=== PATIENT | female | born 1960 | race Caucasian/White ===

== ENCOUNTER → 2017-12-13 11:24 | Outpatient (CLI) | payer OTHER, SELFPAY ==
--- NOTE | 2017-12-13 | DI.MG.S_ITS ---
BILATERAL DIGITAL SCREENING MAMMOGRAM 3D/2D WITH CAD: 12/13/2017 Comparison is made to exams dated: 01/16/2013 mammogram - [facility] and 06/19/1999 mammogram - [facility]. The tissue of both breasts is extremely dense, which lowers the sensitivity of mammography. Current study was also evaluated with a Computer Aided Detection (CAD) system. No significant masses, calcifications, or other findings are seen in either breast. There has been no significant interval change. IMPRESSION: NEGATIVE There is no mammographic evidence of malignancy. A 1 year screening mammogram is recommended. This exam was interpreted at Station ID: [id number]. NOTE: For mammograms, a report in lay terms will be sent to the patient. Approximately 15% of breast malignancies will not be visualized mammographically. In the management of a palpable breast mass, a negative mammogram must not discourage biopsy of a clinically suspicious lesion. Electronically Signed By: Reza pelletier/fiona:12/13/2017 12:24:43 letter sent: Normal Exam ACR BI-RADS Category 1: Negative 3341F
== END ==
PROVIDERS: Family Provider Family Medicine; PCP Family Medicine; Visit Provider Family Medicine
DX: Z12.31 Encounter for screening mammogram for malignant neoplasm of breast (principal)
CPT/HCPCS: 77063; 77067

== ENCOUNTER → 2018-02-19 12:53 | Outpatient (CLI) | payer OTHER, SELFPAY ==
--- NOTE | 2018-02-19 | DI.RAD.S_ITS ---
PROCEDURE: XR KNEE RT 3V INDICATIONS: RIGHT KNEE PAIN FOR ONE MONTH NO INJURY TECHNIQUE: 3 views of the knee were acquired. COMPARISON: [facility], , KNEE 3V LEFT, 01/17/2013, 10:38. FINDINGS: Bones: No fractures or dislocations. No suspicious bony lesions. Moderate to severe patellofemoral and knee joint narrowing laterally and there is tricompartmental periarticular osteophyte formation. Soft tissues: Small joint effusion. No suspicious soft tissue calcifications. IMPRESSION: Small joint effusion and moderate to severe patellofemoral knee joint narrowing laterally. Dictated by: Toby Devlin [facility] Interpreted: Robert Bowen MD on 02/19/2018 at 13:41 Approved by: Robert Bowen M.D. on 02/19/2018 at 14:35
== END ==
PROVIDERS: Family Provider Family Medicine; PCP Family Medicine; Visit Provider Family Medicine
DX: M25.561 Pain in right knee (principal); M25.461 Effusion, right knee
CPT/HCPCS: 73562

== ENCOUNTER → 2020-03-11 12:17 | Outpatient (CLI) | payer OTHER, SELFPAY ==
--- NOTE | 2020-03-11 | DI.RAD.S_ITS ---
PROCEDURE: XR RIBS RT 2V INDICATIONS: rt sided rib pain TECHNIQUE: 2 views of the right ribs were acquired. COMPARISON: [facility], , CHEST 2 VIEW, 08/01/2017, 16:59. FINDINGS: Surgical changes and devices: None. Bones and chest wall: No fractures or dislocations. No suspicious bony lesions. Overlying soft tissues appear unremarkable. Lungs and pleura: The visualized lung appears clear. No pleural effusions or pneumothorax are visible. IMPRESSION: No displaced right rib fractures or other bony abnormalities. Dictated by: Toby Devlin [facility] Interpreted: Robert Bowen MD on 03/11/2020 at 13:00 Approved by: Robert Bowen M.D. on 03/11/2020 at 15:48
== END ==
PROVIDERS: Family Provider Family Medicine; PCP Family Medicine; Referring Provider Family Medicine; Visit Provider Family Medicine
DX: R07.81 Pleurodynia (principal)
CPT/HCPCS: 71100

== ENCOUNTER → 2020-08-11 12:33 | Outpatient (CLI) | payer OTHER, SELFPAY | PROVIDERS: Family Provider Family Medicine; PCP Family Medicine; Referring Provider Family Medicine; Visit Provider Family Medicine | DX: M85.88 Other specified disorders of bone density and structure, other site (principal); Z78.0 Asymptomatic menopausal state; E07.9 Disorder of thyroid, unspecified | CPT/HCPCS: 77080 ==

== ENCOUNTER → 2021-04-24 13:22 | Outpatient (CLI) | payer OTHER, SELFPAY ==
--- NOTE | 2021-04-24 | DI.MG.S_ITS ---
BILATERAL DIGITAL SCREENING MAMMOGRAM 3D/2D WITH CAD: 04/24/2021 CLINICAL: Routine screening. Comparison is made to exams dated: 12/13/2017 mammogram and 01/16/2013 mammogram - [facility]. The tissue of both breasts is extremely dense, which lowers the sensitivity of mammography. Current study was also evaluated with a Computer Aided Detection (CAD) system. No significant masses, calcifications, or other findings are seen in either breast. There has been no significant interval change. IMPRESSION: NEGATIVE There is no mammographic evidence of malignancy. A 1 year screening mammogram is recommended. This exam was interpreted at Station ID: [id number]. NOTE: For mammograms, a report in lay terms will be sent to the patient. Approximately 15% of breast malignancies will not be visualized mammographically. In the management of a palpable breast mass, a negative mammogram must not discourage biopsy of a clinically suspicious lesion. Electronically Signed By: Bib bhatia/fiona:04/24/2021 14:59:58 letter sent: Normal Exam ACR BI-RADS Category 1: Negative 3341F
== END ==
PROVIDERS: Family Provider Family Medicine; PCP Family Medicine; Referring Provider Family Medicine; Visit Provider Family Medicine
DX: Z12.31 Encounter for screening mammogram for malignant neoplasm of breast (principal)
CPT/HCPCS: 77063; 77067

== ENCOUNTER 2021-05-04 12:35 | Emergency (ER) | payer OTHER, SELFPAY ==
[2021-05-04 12:45] VITALS: BP 161/82; PULSE 76; RESP 14; TEMP 36.2; O2SAT 97; BMI 28.7
--- NOTE | 2021-05-04 12:50 | DI.RAD.S_ITS ---
PROCEDURE: XR KNEE RT 3V INDICATIONS: knee pain after leg bent under her TECHNIQUE: 3 views of the knee were acquired. COMPARISON: [facility], CR, XR KNEE RT 3V, 02/19/2018, 12:45. FINDINGS: Bones: No fractures or dislocations. No suspicious bony lesions. Tricompartment degenerative change including severe patellofemoral joint space loss. Soft tissues: No joint effusion. No suspicious soft tissue calcifications. IMPRESSION: Degenerative arthritis. No evidence acute bony abnormality of the right knee. If clinical suspicion and/or symptoms persist, further assessment with repeat plain films, or advanced imaging (e.g., CT, MRI, or bone scan) may be helpful for further assessment. Dictated by: Toño Hughes M.D. on 05/04/2021 at 13:26 Approved by: Toño Hughes M.D. on 05/04/2021 at 13:26
--- NOTE | 2021-05-04 15:27 | ED.LOWEXIN ---
HPI - Extremity Injury (Lower) <Jonathan Beck PA-C - Last Filed: 05/04/21 16:18> General Chief Complaint: Extremity Injury, Lower Stated Complaint: slide down staircase,rt knee/leg Time Seen by Provider: 05/04/21 15:13 Source: patient Mode of arrival: Ambulatory Limitations: no limitations History of Present Illness HPI Narrative: Patient is a 60-year-old female that presents to the emergency department today for an evaluation a right leg injury. Patient states that she slipped down a spiral staircase at approximately 10:00 a.m. this morning, injuring her right knee. She states that when she finally landed her right knee bent behind her resulting in immediate pain. Of note, patient states that she was able to bear weight after the fall. She denies experiencing dizziness or lightheadedness prior to falling and she denies hitting her head as a result of the fall. Patient denies changes in vision, headache, dizziness, decreased sensation in the bilateral lower extremities, lower extremity weakness. No other concerns voiced at this time. Related Data Home Medications Medication Instructions Recorded Confirmed fexofenadine 180 mg tablet 180 mg PO PRN #0 08/29/12 Previous Rx's Medication Instructions Recorded ibuprofen 800 mg tablet 800 mg PO Q8H #42 08/29/12 LEVOTHYROXINE SODIUM (SYNTHROID) 0.05 mg PO QDAY #90 09/29/12 THYROID (#ARMOUR THYROID) 30 mg PO Q DAY #30 12/22/12 Allergies Allergy/AdvReac Type Severity Reaction Status Date / Time Penicillins Allergy Verified 05/04/21 12:47 Review of Systems <Jonathan Beck PA-C - Last Filed: 05/04/21 16:18> Constitutional Constitutional: Denies chills, Denies fever(s), Denies frequent falls, Denies lethargy and Denies weakness ENT Ears, Nose, Mouth, and Throat: Denies dizziness Cardiovascular Cardiovascular: Denies chest pain, Denies irregular heart rhythm, Denies lightheadedness, Denies palpitations, Denies dyspnea, Denies dyspnea on exertion and Denies orthopnea Respiratory Respiratory: Denies cough, Denies dyspnea, Denies dyspnea on exertion and Denies wheezing Gastrointestinal Gastrointestinal: Denies abdominal pain, Denies change in bowel habits, Denies diarrhea, Denies nausea and Denies vomiting Musculoskeletal Musculoskeletal: Denies deformity, Reports arthralgias (Right knee), Denies numbness, Denies radiating pain into limb and Reports other (Tenderness to palpation appreciated over medial and lateral right knee) Neurologic Neurologic: Denies behavioral changes, Denies confusion, Denies dizziness, Denies frequent falls, Denies numbness and Denies weakness Psychiatric Psychiatric: Denies behavioral changes and Denies confusion Endocrine Endocrine: Denies palpitations Allergic/Immunologic Allergic/Immunologic: Denies wheezing Patient History <Jonathan Beck PA-C - Last Filed: 05/04/21 16:18> Social History Smoking Status: Unknown if ever smoked Smoking Status: Unknown if ever smoked alcohol intake frequency: 0-2 drinks per day Substance Use Type: does not use Exam <Jonathan Beck PA-C - Last Filed: 05/04/21 16:18> Narrative Exam Narrative: GENERAL: 60 year old patient appears stated age. Well-developed patient, in mild distress. HEAD: Atraumatic. Normocephalic. EYES: Pupils equal round and reactive. Extraocular motions intact. No scleral icterus. No injection or drainage. ENT: Nose without bleeding, purulent drainage. Throat without erythema, tonsillar hypertrophy or exudate. Airway patent. NECK: Trachea midline. Non tender CARDIOVASCULAR: Regular rate and rhythm without murmurs, gallops, or rubs. RESPIRATORY: Clear to auscultation. Breath sounds equal bilaterally. No wheezes, rales, or rhonchi. GASTROINTESTINAL: Abdomen soft, non-tender, nondistended. EXTREMITIES: No edema. Mild generalized swelling about the right knee. Tenderness to palpation appreciated over the medial and lateral aspects of the right knee. No significant joint laxity appreciated throughout the right lower extremity. Hips are nontender to palpation bilaterally. Ankles nontender palpation bilaterally. BACK: Nontender without deformity or crepitance. No flank tenderness. NEURO: AOx3. SKIN: No rash or erythema of visible areas Initial Vital Signs Initial Vital Signs: Vital Signs Temperature 97.2 F L 05/04/21 12:45 Pulse Rate 76 05/04/21 12:45 Respiratory Rate 14 05/04/21 12:45 Blood Pressure 161/82 H 05/04/21 12:45 Pulse Oximetry 97 05/04/21 12:45 Cardio Pulses: dorsalis pedis present bilaterally <Queta Campos DO - Last Filed: 05/04/21 20:16> Initial Vital Signs Initial Vital Signs: Vital Signs Temperature 97.2 F L 05/04/21 12:45 Pulse Rate 76 05/04/21 12:45 Respiratory Rate 14 05/04/21 12:45 Blood Pressure 161/82 H 05/04/21 12:45 Pulse Oximetry 97 05/04/21 12:45 Course <Jonathan Beck PA-C - Last Filed: 05/04/21 16:18> Course Course Narrative: Patient is a 60-year-old female that presents to the emergency department today for an evaluation a right leg injury. X-ray of right knee obtained. Patient does not complain of additional joint pain. Orders Ordered: ED Orders 05/04/21 12:50 XR knee RT 3V Stat Vital Signs Vital signs: Vital Signs - 8 hr 05/04/21 12:45 05/04/21 15:54 Temperature 97.2 F L Pulse Rate 76 72 Respiratory Rate 14 16 Blood Pressure 161/82 H 139/74 Pulse Oximetry 97 98 <Queta Campos DO - Last Filed: 05/04/21 20:16> Orders Ordered: ED Orders 05/04/21 12:50 XR knee RT 3V Stat Vital Signs Vital signs: Vital Signs - 8 hr 05/04/21 12:45 05/04/21 15:54 Temperature 97.2 F L Pulse Rate 76 72 Respiratory Rate 14 16 Blood Pressure 161/82 H 139/74 Pulse Oximetry 97 98 MDM - Extremity Injury (Lower) <Jonathan Beck PA-C - Last Filed: 05/04/21 16:18> Imaging Data Extremity x-ray #1: Radiologist's Impression: PROCEDURE:? XR KNEE RT 3V ? INDICATIONS:? knee pain after leg bent under her ? TECHNIQUE:? 3 views of the knee were acquired.? ? COMPARISON:? [facility], , XR KNEE RT 3V, 02/19/2018, 12:45. ? FINDINGS:? ? Bones:? No fractures or dislocations.? No suspicious bony lesions.? Tricompartment degenerative change including severe patellofemoral joint space loss.? ? Soft tissues:? No joint effusion.? No suspicious soft tissue calcifications.? ? ? IMPRESSION:? Degenerative arthritis.? No evidence acute bony abnormality of the right knee. ? If clinical suspicion and/or symptoms persist, further assessment with repeat plain films, or advanced imaging (e.g., CT, MRI, or bone scan) may be helpful for further assessment. ? ? ? Dictated by: Toño Hughes M.D. on 05/04/2021 at 13:26 ? ? Approved by: Toño Hughes M.D. on 05/04/2021 at 13:26 ? MDM Narrative Medical decision making narrative: Patient is a 60-year-old female that presents to the emergency department today for an evaluation a right leg injury. To consider fracture versus dislocation versus sprain versus strain. X-ray results are reassuring as no fracture is appreciated. Physical examination is not consistent with significant ligamentous injury and is reassuring as the patient is neurovascularly intact throughout the bilateral lower extremities. Discussed with patient the need to follow-up with her primary care provider and a possibility of following up with Orthopedics. Strict return precautions were discussed with the patient prior to discharge. Discharge Plan Departure Patient Disposition: Home Clinical Impression: Knee sprain Qualifiers: Encounter type: initial encounter Involved ligament of knee: unspecified ligament Laterality: right Qualified Code(s): S83.91XA - Sprain of unspecified site of right knee, initial encounter Instructions: DI for Knee Sprain Activity Restrictions/Additional Instructions: *You have been diagnosed with right knee sprain *What to do: *Please continue to take your regular medications as directed. [ ] New medication prescriptions sent to your pharmacy: [ ] [ ] New medication written as a paper prescription [X] No new medications given *Please follow up with your primary care provider in 2-3 days, call for an appointment. Let them know you were seen in the Emergency Department and that we ask that you be seen in follow up. We will electronically transmit a record of today's note if your PCP is in our system. *If you do not have a primary care provider please contact the [facility] Resource line at [phone]. They will ask some questions about your medical history and help get you set up with a doctor in the community. *Return to Emergency Department if you should have any new, worsening or concerning symptoms, such as fever greater than 101 F, shaking chills, worsening knee pain, worsening knee instability, significant joint swelling, persistent vomiting or other bothersome symptoms. Prescriptions: No Action fexofenadine 180 MG tablet 180 mg PO PRN Qty: 0 RF: 0 ibuprofen 800 MG tablet 800 mg PO Q8H Qty: 42 RF: 0 LEVOTHYROXINE SODIUM (SYNTHROID) 0.05 mg PO QDAY Qty: 90 RF: 0 THYROID (#ARMOUR THYROID) 30 mg PO Q DAY Qty: 30 RF: 2 Referrals: Jenny Wilder MD [Primary Care Provider] - <Queta Campos DO - Last Filed: 05/04/21 20:16> Cosign ED Attending Cossurehsature Attestation: I was immediately available in the department for consultation. Documentation has been reviewed.
[2021-05-04 15:54] VITALS: BP 139/74; PULSE 72; RESP 16; O2SAT 98
== END 2021-05-04 15:54 | disposition home or self-care (01) ==
PROVIDERS: Emergency Provider Physician Assistant; Family Provider Family Medicine; PCP Family Medicine
DX: S83.91XA Sprain of unspecified site of right knee, initial encounter (principal); W10.9XXA Fall (on) (from) unspecified stairs and steps, initial encounter
CPT/HCPCS: 73562; 99281; 99283

== ENCOUNTER 2021-09-29 06:48 | Emergency (ER) | payer OTHER, SELFPAY ==
[2021-09-29] VITALS (11 sets, daily range): BP systolic 124–186; BP diastolic 79–96; PULSE 62–71; RESP 11–20; TEMP 36.5; O2SAT 92–99; BMI 29.2
--- NOTE | 2021-09-29 06:55 | DI.CT.S_ITS ---
PROCEDURE: CT HEAD/BRAIN WO CON INDICATIONS: left side weakness, last known well 11pm TECHNIQUE: Noncontrast 4.5 mm thick angled axial sections acquired from the foramen magnum to the vertex, with coronal and sagittal reformats. For radiation dose reduction, the following was used: automated exposure control, adjustment of mA and/or kV according to patient size. COMPARISON: [facility], CT, HEAD WITHOUT CONTRAST, 10/13/2016, 20:11. FINDINGS: Image quality: Excellent. CSF spaces: Basal cisterns are patent. No extra-axial fluid collections. Ventricles are normal in size and shape. Brain: No midline shift. No intracranial masses or hemorrhage. Guan-white matter interface is normal. Stable senescent bilateral basal ganglial calcifications. Skull and face: Calvarium and visualized facial bones are intact, without suspicious lesions. Sinuses: Visualized sinuses and mastoids are clear. IMPRESSION: 1. CT head without acute intracranial abnormalities. 2. No acute intracranial hemorrhage. 3. No acute calvarial fractures. Findings were discussed telephonically with Dr. Hernández at 0748hrs [facility]. Dictated by: Aj Bray M.D. on 09/29/2021 at 7:46 Approved by: Aj Bray M.D. on 09/29/2021 at 7:49
[2021-09-29 07:09] LABS: Add Manual Diff / Slide Review NO; Basophils Absolute Auto 0 /uL (0-100); Basophils Percent Auto 0.7 % (0-2); Eosinophils Absolute Auto 200 /uL (0-450); Eosinophils Percent Auto 3.2 % (2-4); Hematocrit 41.6 % (36-46); Hemoglobin 14.2 g/dL (12.0-16.0); Lymphocytes Absolute Auto 1300 /uL (1100-4500); Lymphocytes Percent Auto 26.5 % (25-40); Mean Corpuscular HGB Conc 34.1 % (30-36); Mean Corpuscular Hemoglobin 31.3 PG (26-34); Mean Corpuscular Volume 91.8 fL (80-100); Monocytes Absolute Auto 300 /uL (0-900); Neutrophils Absolute Auto 3000 /uL (1500-7000); Neutrophils Percent Auto 62.6 % (50-75); Platelet Count 242 X10^3/uL (150-400); Red Blood Cell Count 4.53 X10^6/uL (4.0-5.2); Red Cell Distribution Width 12.8 % (11.6-14.8); White Blood Cell Count 4.8 X10^3/uL (4.5-11.0)
[2021-09-29 07:19] LABS: Alanine Aminotransferase 23 IU/L (<35); Albumin 4.8 g/dL (3.5-5.0); Albumin Globulin Ratio 1.4 (1.0-2.8); Alkaline Phosphatase 86 U/L (38-126); Aspartate Aminotransferase 32 IU/L (14-36); BUN Creatinine Ratio 26.3 (6-22); Bilirubin Total 1.3 mg/dL (0.2-1.3); Blood Urea Nitrogen 25 mg/dL (7-17); Calcium 9.8 mg/dL (8.4-10.2); Carbon Dioxide 25 mmol/L (22-32); Chloride 106 mmol/L (98-107); Estimated Glomerular Filt Rate 59.4 mL/min (>60); Globulin 3.4 g/dL (1.7-4.1); Glucose 102 mg/dL (80-110); HEMOLYSIS 15 (0-50); Potassium 3.8 mmol/L (3.4-5.1); Sodium 139 mmol/L (137-145); Total Protein 8.2 g/dL (6.3-8.2)
[2021-09-29 07:30] LABS: Troponin I < 0.012 ng/mL (0.01-0.034)
[2021-09-29 07:36] LABS: COVID19 -Nasal RAPID Negative (Negative)
--- NOTE | 2021-09-29 07:46 | DI.CT.S_ITS ---
PROCEDURE: CT ANGIO HEAD AND NECK INDICATIONS: Left side weakness, TECHNIQUE: After the administration of intravenous contrast, 1 mm thick sections acquired from the aortic arch through the [place]. Post-contrast 4.5 mm thick sections then re-acquired from the foramen magnum to the vertex. 3-dimensional kysohdy-uqrirzegw-nmkjlcfxoi (MIP) and/or volume rendering reformats were acquired of the central intracranial vasculature and neck separately. COMPARISON: MR, STROKE PROTOCOL, 10/25/2016, 13:18. [facility], CT, HEAD WITHOUT CONTRAST, 10/13/2016, 20:11. [facility], CT, CT HEAD/BRAIN WO CON, 09/29/2021, 7:32. FINDINGS: Image quality: Prominent venous overlap opacification is present. BRAIN: CSF spaces: Ventricles are normal in size and shape. Basal cisterns are patent. No extra-axial fluid collections. Brain: No midline shift. No intracranial bleeds or masses. Guan-white matter interface appears intact. Senescent basal ganglia calcifications are present. Skull and face: Calvarium and facial bones appear intact, without suspicious lesions. Orbits appear normal. Sinuses: Sinuses and mastoids are clear. HEAD CT ANGIOGRAPHY: Anterior circulation: Intracranial internal carotid arteries are normal in size and flow. The flow within the paired anterior cerebral arteries is normal and symmetric. The flow within the middle cerebral arteries is normal and symmetric. The anterior communicating artery is seen. No aneurysms are seen. The superior most aspects of the anterior circulation are not included within the field of view and cannot be evaluated. Posterior circulation: Visualized portions of the vertebral arteries demonstrate normal caliber, and join to form a normal appearing basilar artery. Flow within the posterior cerebral arteries is normal and symmetric. No aneurysms are seen. There is a right-sided vertebral artery dominance. NECK CT ANGIOGRAPHY: The origins of the left and right common, right internal and bilateral external carotid arteries demonstrate no areas of hemodynamically significant stenosis, vascular occlusion or aneurysmal dilation. Calcification is noted at the origins of the internal carotid arteries bilaterally. There is approximate 40-50% stenosis at the origin of the left internal carotid artery. Origins of the left and right vertebral arteries demonstrate no areas of hemodynamically significant stenosis, vascular occlusion or aneurysmal dilation. Aortic arch demonstrates conventional anatomy. Limited, visualized portions of the subclavian vasculature are unremarkable. IMPRESSION: 1. No acute intracranial process. 2. No areas of hemodynamically significant stenosis, vascular occlusion or aneurysmal dilation within the anterior circulation. It is noted angio images of the superior most aspect of the anterior circulation are not included within the field of view. This area is unable to be Banks evaluated and if concern persists, repeat images through this region is recommended. 3. No areas of hemodynamically significant stenosis, vascular occlusion or aneurysmal dilation within the posterior circulation. 4. Approximate 40-50% stenosis at the origin of the left internal carotid artery secondary to calcification. Any quantitative measurements of stenosis were performed using NASCET criteria. Dictated by: Shanell Walker M.D. on 09/29/2021 at 8:02 Approved by: Shanell Walker M.D. on 09/29/2021 at 8:13
--- NOTE | 2021-09-29 07:47 | ED.NEUROSD ---
HPI - Neuro Symptoms/Deficit General Chief Complaint: Neuro Symptoms/Deficit Stated Complaint: headache, weakness left side Time Seen by Provider: 09/29/21 06:51 Source: patient and family Mode of arrival: Ambulatory Limitations: no limitations History of Present Illness HPI Narrative: The patient complains of occipital headache for about 10 days. She has subjective left-sided numbness and weakness. She has no restriction of motion in extremities. She has no history of stroke or TIA. She has no visual changes. She has no dysarthria or confusion. She is on medications for hypothyroidism. He has no history of diabetes, hyperlipidemia or hypertension. She has a strong family history of stroke. She denies recent illness. She has no URI symptoms, no cough, no sore throat or fever. She has he has history of migraines, the current headache is nothing like her migraines. She notes a clicking sensation in her neck with movement. She denies neck pain. On Anticoagulants: No Related Data Home Medications Medication Instructions Recorded Confirmed fexofenadine 180 mg tablet 180 mg PO PRN #0 08/29/12 Previous Rx's Medication Instructions Recorded ibuprofen 800 mg tablet 800 mg PO Q8H #42 08/29/12 LEVOTHYROXINE SODIUM (SYNTHROID) 0.05 mg PO QDAY #90 09/29/12 THYROID (#ARMOUR THYROID) 30 mg PO Q DAY #30 12/22/12 Allergies Allergy/AdvReac Type Severity Reaction Status Date / Time Penicillins Allergy Verified 05/04/21 12:47 Review of Systems Constitutional Constitutional: Denies body ache(s), Denies chills, Reports fatigue, Denies fever(s) and Reports headache(s) Eyes Eyes: Denies blurry vision Comments: Vision becomes fuzzy in the inferior visual more. There is no clean visual field cut. ENT Ears, Nose, Mouth, and Throat: Reports dizziness, Reports headache(s), Denies sinus pressure and Denies sore throat Cardiovascular Cardiovascular: Denies chest pain, Denies syncope, Denies rapid heart rate, Denies pedal edema and Denies dyspnea Respiratory Respiratory: Denies cough and Denies dyspnea Gastrointestinal Gastrointestinal: Denies abdominal pain and Denies nausea Genitourinary Genitourinary: Denies dysuria and Denies urinary urgency Musculoskeletal Musculoskeletal: Denies back pain Integumentary/Breasts Skin/Breast: Denies lesions and Denies rash Neurologic Neurologic: Denies confusion, Reports dizziness, Denies syncope and Reports headache(s) Psychiatric Psychiatric: Reports anxiety and Denies confusion Endocrine Endocrine: Reports fatigue Hematologic/Lymphatic On Anticoagulants: No Patient History Medical History (Updated 09/29/21 @ 10:27 by Diomedes Hernández MD) Hypothyroidism Migraine Surgical History (Updated 09/29/21 @ 07:53 by Diomedes Hernández MD) No significant past surgical history Social History Smoking Status: Unknown if ever smoked Smoking Status: Unknown if ever smoked alcohol intake frequency: 0-2 drinks per day Substance Use Type: does not use Exam Initial Vital Signs Initial Vital Signs: Vital Signs Temperature 97.7 F 09/29/21 06:58 Pulse Rate 66 09/29/21 06:58 Respiratory Rate 20 09/29/21 06:58 Blood Pressure 186/96 H 09/29/21 06:58 Pulse Oximetry 97 09/29/21 06:58 Const General: cooperative, healthy appearing, comfortable and anxious Nutritional Appearance: average body habitus HENIL Head: normal to inspection, normocephalic and atraumatic Face and sinus: normal facial exam Mouth: oral mucosae normal Throat: posterior oropharynx normal Eyes Conjunctivae: conjunctivae normal Sclera: sclerae normal Pupils: PERRL EOM: EOM intact bilaterally Neck Neck: normal visual inspection Chest Chest: normal inspection of the chest Resp Effort & Inspection: normal respiratory effort Auscultation: clear to auscultation bilaterally Cardio Rate: regular rate Rhythm: regular rhythm Heart Sounds: S1 normal, S2 normal, no click, no murmurs and no rubs GI Inspection: normal to inspection Palpation: No mass and No tender General: No CVA tenderness Back/Spine/Pelvis Back: normal to inspection Skin General: no rashes or lesions noted Neuro General: patient alert, patient awake and patient oriented x3 Cranial Nerves: CN's II-XI intact bilaterally Cognition: normal cognition Speech: speech normal Gait: not ataxic Motor: muscle tone normal throughout Sensory Exam: other (Decreased light touch sensation to left face, left arm and left leg.) Extrem General: normal to inspection, full ROM, no pedal edema and no calf tenderness Psych Mental Status: mental status grossly normal Course Course Course Narrative: Initial blood pressure reading was significantly high, systolic pressure was 07/28/2029 range at the time of discharge without intervention. Aspirin was given. CT/CTA was negative for a neurologic or vascular event. The CTA does indicate atherosclerotic changes. Without discussion from the radiologist, in moderate amount of osteoarthritis is also present in the cervical spine. Symptoms have greatly improved with IV Toradol. Orders Ordered: Discontinued Medications Aspirin (Aspirin 81 Mg Chew Tab) 324 mg PO NOW ONE Stop: 09/29/21 08:09 Last Admin: 09/29/21 08:14 Dose: 324 mg Documented by: SPRING Ketorolac Tromethamine (Ketorolac 30 Mg/Ml Vial) 15 mg IV NOW ONE Stop: 09/29/21 08:50 Last Admin: 09/29/21 09:17 Dose: 15 mg Documented by: SPRING Vital Signs Vital signs: Vital Signs - 8 hr 09/29/21 06:58 09/29/21 07:00 09/29/21 07:30 Temperature 97.7 F Pulse Rate 70 67 63 Respiratory Rate 19 15 15 Blood Pressure 186/96 H 164/86 H 161/82 H Pulse Oximetry 98 99 99 09/29/21 07:42 09/29/21 08:00 09/29/21 08:30 Temperature Pulse Rate 70 62 69 Respiratory Rate 17 16 11 L Blood Pressure 157/86 H 155/83 H 160/88 H Pulse Oximetry 99 99 98 09/29/21 09:16 09/29/21 09:17 Temperature Pulse Rate 64 Respiratory Rate 15 Blood Pressure 137/85 Pulse Oximetry 92 98 MDM - Neuro Symptoms/Deficit Lab Data Result diagrams: 09/29/21 07:00 09/29/21 07:00 Labs: Lab Results 09/29/21 09/29/21 09/29/21 Range/Units 07:00 07:00 07:00 WBC 4.8 (4.5-11.0) X10^3/uL RBC 4.53 (4.0-5.2) X10^6/uL Hgb 14.2 (12.0-16.0) g/dL Hct 41.6 (36-46) % MCV 91.8 (80-100) fL MCH 31.3 (26-34) PG MCHC 34.1 (30-36) % RDW 12.8 (11.6-14.8) % Plt Count 242 (150-400) X10^3/uL Neut % (Auto) 62.6 (50-75) % Lymph % (Auto) 26.5 (25-40) % [place] % (Auto) 7.0 (3-14) % Eos % (Auto) 3.2 (2-4) % Baso % (Auto) 0.7 (0-2) % Neut # (Auto) 3000 (3041-9430) /uL Lymph # (Auto) 1300 (0989-6206) /uL [place] # (Auto) 300 (0-900) /uL Eos # (Auto) 200 (0-450) /uL Baso # (Auto) 0 (0-100) /uL Sodium 139 (137-145) mmol/L Potassium 3.8 (3.4-5.1) mmol/L Chloride 106 (98-107) mmol/L Carbon Dioxide 25 (22-32) mmol/L BUN 25 H (7-17) mg/dL Creatinine 0.95 (0.52-1.04) mg/dL Estimated GFR 59.4 L (>60) mL/min BUN/Creatinine Ratio 26.3 H (6-22) Glucose 102 (80-110) mg/dL Calcium 9.8 (8.4-10.2) mg/dL Total Bilirubin 1.3 (0.2-1.3) mg/dL AST 32 (14-36) IU/L ALT 23 (<35) IU/L Alkaline Phosphatase 86 (38-126) U/L Troponin I < 0.012 (0.01-0.034) ng/mL Total Protein 8.2 (6.3-8.2) g/dL Albumin 4.8 (3.5-5.0) g/dL Globulin 3.4 (1.7-4.1) g/dL Albumin/Globulin Ratio 1.4 (1.0-2.8) SARS-CoV-2 (PCR) (Negative) 09/29/21 Range/Units 07:11 WBC (4.5-11.0) X10^3/uL RBC (4.0-5.2) X10^6/uL Hgb (12.0-16.0) g/dL Hct (36-46) % MCV (80-100) fL MCH (26-34) PG MCHC (30-36) % RDW (11.6-14.8) % Plt Count (150-400) X10^3/uL Neut % (Auto) (50-75) % Lymph % (Auto) (25-40) % [place] % (Auto) (3-14) % Eos % (Auto) (2-4) % Baso % (Auto) (0-2) % Neut # (Auto) (9045-1337) /uL Lymph # (Auto) (9909-6635) /uL [place] # (Auto) (0-900) /uL Eos # (Auto) (0-450) /uL Baso # (Auto) (0-100) /uL Sodium (137-145) mmol/L Potassium (3.4-5.1) mmol/L Chloride (98-107) mmol/L Carbon Dioxide (22-32) mmol/L BUN (7-17) mg/dL Creatinine (0.52-1.04) mg/dL Estimated GFR (>60) mL/min BUN/Creatinine Ratio (6-22) Glucose (80-110) mg/dL Calcium (8.4-10.2) mg/dL Total Bilirubin (0.2-1.3) mg/dL AST (14-36) IU/L ALT (<35) IU/L Alkaline Phosphatase (38-126) U/L Troponin I (0.01-0.034) ng/mL Total Protein (6.3-8.2) g/dL Albumin (3.5-5.0) g/dL Globulin (1.7-4.1) g/dL Albumin/Globulin Ratio (1.0-2.8) SARS-CoV-2 (PCR) Negative (Negative) Imaging Data CT scan - head: Radiologist's Impression: 1. CT head without acute intracranial abnormalities. ? 2. No acute intracranial hemorrhage. ? 3. No acute calvarial fractures. CTA - brain/neck: Radiologist's Impression: 1. No acute intracranial process. ? 2. No areas of hemodynamically significant stenosis, vascular occlusion or aneurysmal dilation within the anterior circulation.? It is noted? angio images of the superior most aspect of the anterior circulation are not included within the field of view.? This area is unable to be Banks evaluated and if concern persists, repeat images through this region is recommended. ? 3. No areas of hemodynamically significant stenosis, vascular occlusion or aneurysmal dilation within the posterior circulation. ? 4. Approximate 40-50% stenosis at the origin of the left internal carotid artery secondary to calcification.? ECG Data Attestation: I personally reviewed and interpreted this ECG as follows: (Normal sinus rhythm rate 63 beats per minute. Normal intervals. No ectopy. No acute ST T wave changes. Normal EKG.) Discharge Plan Departure Patient Disposition: Home Clinical Impression: Headache, Cervical osteoarthritis, Carotid atherosclerosis Instructions: Osteoarthritis Activity Restrictions/Additional Instructions: The CT images done are suboptimal to evaluate the bones in your neck, but you clearly have osteoarthritis. This is probably the cause of your headache. This does not explain your left-sided discomfort. There is no evidence of stroke. You do have a noncritical degree of atherosclerosis and carotids. I recommend aspirin 81 daily. Tylenol or Advil as needed for headache or neck pain. Follow-up with your PCM regarding blood pressure management, cholesterol evaluation, and headaches. Consider further evaluation of your neck discomfort, and perhaps physical therapy. Return to the ER as necessary. Prescriptions: No Action fexofenadine 180 MG tablet 180 mg PO PRN Qty: 0 0RF ibuprofen 800 MG tablet 800 mg PO Q8H Qty: 42 0RF LEVOTHYROXINE SODIUM (SYNTHROID) 0.05 mg PO QDAY Qty: 90 0RF THYROID (#ARMOUR THYROID) 30 mg PO Q DAY Qty: 30 2RF Referrals: Jenny Wilder MD [Primary Care Provider] -
[2021-09-29] MEDS: ASPIRIN 81 MG CHEW TAB 324 MG PO (08:14)
[2021-09-29] MEDS: KETOROLAC 30 MG/ML VIAL 15 MG IV (09:17)
== END 2021-09-29 10:55 | disposition home or self-care (01) ==
PROVIDERS: Emergency Medicine; Emergency Provider Emergency Medicine; Family Provider Family Medicine; PCP Family Medicine
DX: R51.9 Headache, unspecified (principal); M47.812 Spondylosis without myelopathy or radiculopathy, cervical region; I65.22 Occlusion and stenosis of left carotid artery; Z82.3 Family history of stroke; Z20.822 Contact with and (suspected) exposure to COVID-19
CPT/HCPCS: 36415; 70450; 70496; 70498; 80053; 84484; 85025; 87635; 93005; 96374; 99284; 99285; C9803; J1885

== ENCOUNTER → 2021-10-21 11:04 | Outpatient (CLI) | payer OTHER, SELFPAY ==
--- NOTE | 2021-10-21 11:06 | DI.MRI.S_ITS ---
PROCEDURE: MR STROKE Pre- and post-contrast brain MRI, non-contrast brain MR angiogram, pre- and postcontrast neck MR angiogram INDICATIONS: continued left sided weakness/face numbness TECHNIQUE: Brain: Noncontrast axial T1 spin echo, axial T2 fast spin echo, sagittal and axial FLAIR, coronal T2 fast spin echo, axial gradient echo, axial diffusion and ADC through the brain. After the administration of contrast, axial 3D VIBE of the cranial vasculature and brain. Brain MRA: Non-contrast 3-D time of flight MR angiogram, with multiple vzicgzg-obioyacow-tzyzaimvvu (MIP) reformats performed. Neck MRA: Axial and sagittal TruFISP through the neck. Coronal dynamic MR angiogram during administration of contrast in the arterial and venous phases, with 3-dimenstional lsmmsav-birwftjnh-yfpzapdyce (MIP) reformats constructed from subtraction images. COMPARISON: [facility], MR, BRAIN WITHOUT CONTRAST, 08/09/2008, 19:42. [facility], MR, ANGIOGRAM HEAD WITHOUT CONTRAS, 08/09/2008, 19:30. [facility], CT, CT HEAD/BRAIN WO CON, 09/29/2021, 7:32. [facility], CT, CT ANGIO HEAD AND NECK, 09/29/2021, 7:32. [facility], MR, STROKE PROTOCOL, 10/25/2016, 13:18. FINDINGS: Image quality: Excellent. BRAIN: CSF spaces: Ventricles are normal in size and shape. Basal cisterns are patent. No extra-axial fluid collections. Brain: No intracranial bleeds or mass effects. Guan-white matter interface is normal. Diffusion weighted images show no acute ischemic insults. Brainstem appears normal. Normal intravascular flow voids are present. No abnormal intracranial enhancement. Skull and face: Calvarial marrow signal is normal. Orbits appear normal. Sinuses: Sinuses and mastoids are clear. BRAIN MR ANGIOGRAM: Anterior circulation: Intracranial internal carotid arteries are normal in size and enhancement. The flow within the paired anterior cerebral arteries is normal and symmetric. The flow within the middle cerebral arteries is normal and symmetric. The anterior communicating artery is seen and appears fenestrated. No stenoses, occlusions, or aneurysms. Posterior circulation: Note is made of bilateral type origins of the posterior cerebral arteries, with an associated diminutive basilar artery. The flow within the posterior cerebral arteries is normal and symmetric. The distal vertebral arteries are overall small in size, yet otherwise unremarkable. No aneurysms are seen. NECK MR ANGIOGRAM: Carotids: Great vessels demonstrate a conventional anatomy as they arise from the aortic arch. The origins of the common carotid arteries appear patent. The calibers and courses of both common carotid arteries are normal. The bifurcation regions appear normal bilaterally. The internal carotid arteries demonstrate normal course and caliber. Posterior circulation: The origins of the vertebral arteries appear patent. More superior portions of both vertebral arteries demonstrate normal course and caliber, and join to form a normal appearing basilar artery. Miscellaneous: Subclavian arteries appear patent. Pre-contrast images through the neck show no soft tissue abnormalities. IMPRESSION: BRAIN MRI: No findings of acute or subacute infarction can be seen. No masses or abnormal enhancement can be seen. BRAIN MR ANGIOGRAM: No significant intracranial arterial abnormality is seen. Tlcjqv-ud-Uxvcfi developmental anomalies are incidentally noted. NECK MR ANGIOGRAM: Within the arteries of the neck, no hemodynamically significant stenosis can be seen. Dictated by: Subhash Roman M.D. on 10/21/2021 at 11:16 Approved by: Subhash Roman M.D. on 10/21/2021 at 11:22
== END ==
PROVIDERS: Family Provider Family Medicine; PCP Family Medicine; Referring Provider Family Medicine; Visit Provider Family Medicine
DX: G45.9 Transient cerebral ischemic attack, unspecified (principal); M54.2 Cervicalgia; R51.9 Headache, unspecified; H53.10 Unspecified subjective visual disturbances
CPT/HCPCS: 70548; 70553

== ENCOUNTER → 2021-10-25 13:45 | Outpatient (CLI) | payer OTHER, SELFPAY ==
--- NOTE | 2021-10-25 | DI.RAD.S_ITS ---
PROCEDURE: XR CERVICAL SPINE 2V OR 3V INDICATIONS: NECK PAIN TECHNIQUE: 3 view(s) of the cervical spine were acquired. COMPARISON: None. FINDINGS: Bones: No fractures or dislocations to the T1 level. The lateral masses of C1 appear intact on the odontoid view. No suspicious bony lesions. Mild endplate osteophytosis and disc height loss, most prominent at C5 -7. Soft tissues: No prevertebral soft tissue swelling. IMPRESSION: Mild cervical spine degeneration. Dictated by: Marquez Staton M.D. on 10/25/2021 at 15:43 Approved by: Marquez Staton M.D. on 10/25/2021 at 15:45
== END ==
PROVIDERS: Family Provider Family Medicine; PCP Family Medicine; Referring Provider Family Medicine; Visit Provider Family Medicine
DX: M50.322 Other cervical disc degeneration at C5-C6 level (principal)
CPT/HCPCS: 72040

== ENCOUNTER → 2021-11-10 13:26 | Outpatient (CLI) | payer OTHER, SELFPAY ==
--- NOTE | 2021-11-10 13:28 | DI.MRI.S_ITS ---
PROCEDURE: MR CERVICAL SPINE WO CON INDICATIONS: Radiculopathy, cervical region Cervicalgia TECHNIQUE: Noncontrast sagittal T1 spin echo and T2 fast spin echo, sagittal STIR, foraminal oblique sagittal T2 fast spin echo, and axial gradient echo or T2 fast spin echo through the cervical spine. COMPARISON: None. FINDINGS: Image quality: Excellent. Alignment and Curvature: There is normal bony alignment. Bone Marrow: No suspicious focal marrow signal abnormality or bone marrow edema. Spinal Cord: Visualized spinal cord has normal size and signal. No cerebellar tonsillar herniation. Regional Soft Tissues: No paravertebral masses. Prevertebral soft tissues are normal in thickness. C2-C3: No spinal canal or neural foraminal stenosis. C3-C4: Disc bulge flattens the ventral cord slightly. Facet and uncovertebral hypertrophy combine to produce moderate left and mild right neural foraminal stenosis. C4-C5: Disc bulge flattens the ventral cord slightly. Facet and uncovertebral hypertrophy contribute to severe bilateral neural foraminal stenosis. C5-C6: Disc bulge without mass effect upon the cord. Severe left and moderate right neural foraminal stenosis due to facet and uncovertebral hypertrophy. C6-C7: Moderate to severe bilateral neural foraminal stenosis due to facet and uncovertebral hypertrophy. No spinal canal stenosis. C7-T1: No spinal canal or neural foraminal stenosis. IMPRESSION: Multilevel multifactorial degenerative changes. Varying degrees of neural foraminal stenosis up to severe, detailed above. No greater than mild spinal canal stenosis at C3-C4, C4-C5. Dictated by: Redd Thompson M.D. on 11/10/2021 at 14:43 Approved by: Redd Thompson M.D. on 11/10/2021 at 14:47
== END ==
PROVIDERS: Family Provider Family Medicine; PCP Family Medicine; Referring Provider Family Medicine; Visit Provider Family Medicine
DX: M48.02 Spinal stenosis, cervical region (principal); M54.2 Cervicalgia; M47.22 Other spondylosis with radiculopathy, cervical region
CPT/HCPCS: 72141

== ENCOUNTER 2021-11-30 09:15 | Outpatient (CLI) | payer OTHER, SELFPAY | END 2021-12-05 14:28 | disposition home or self-care (01) | LOC: PHYS 09:16 | PROVIDERS: Family Provider Family Medicine; PCP Family Medicine; Referring Provider Family Medicine; Visit Provider Family Medicine | DX: M54.2 Cervicalgia (principal); M54.12 Radiculopathy, cervical region | CPT/HCPCS: 95886; 95911 ==

== ENCOUNTER → 2022-05-23 07:28 | Outpatient (CLI) | payer OTHER, SELFPAY ==
[2022-05-23 09:25] LABS: Influenza A - CEPHEID Flu A NEGATIVE (NEGATIVE); Influenza B - CEPHEID Flu B NEGATIVE (NEGATIVE); Respiratory Syncytial Virus POSITIVE (Negative)
[2022-05-23 09:28] LABS: COVID-19 CEPHEID 4-PLEX PCR Negative (Negative)
== END ==
PROVIDERS: Family Provider Family Medicine; PCP Family Medicine; Visit Provider Nurse Practitioner Family
DX: R05.9 Cough, unspecified (principal); J02.9 Acute pharyngitis, unspecified
CPT/HCPCS: 0241U; 87070

== ENCOUNTER → 2022-06-22 09:23 | Outpatient (CLI) | payer OTHER, SELFPAY ==
--- NOTE | 2022-06-22 | DI.MG.S_ITS ---
BILATERAL DIGITAL SCREENING MAMMOGRAM 3D/2D WITH CAD: 06/22/2022 CLINICAL: Routine screening. Comparison is made to exams dated: 04/24/2021 mammogram, 12/13/2017 mammogram, and 01/16/2013 mammogram - [facility]. Both breasts are extremely dense, which lowers the sensitivity of mammography (category d />75% glandular tissue). Current study was also evaluated with a Computer Aided Detection (CAD) system. No significant masses, calcifications, or other findings are seen in either breast. There has been no significant interval change. IMPRESSION: NEGATIVE There is no mammographic evidence of malignancy. A 1 year screening mammogram is recommended. This exam was interpreted at Station ID: [id number]. NOTE: For mammograms, a report in lay terms will be sent to the patient. Approximately 15% of breast malignancies will not be visualized mammographically. In the management of a palpable breast mass, a negative mammogram must not discourage biopsy of a clinically suspicious lesion. Electronically Signed By: Redd Thompson M.D., jr/fiona:06/22/2022 12:06:16 letter sent: Normal Exam ACR BI-RADS Category 1: Negative [id number]
== END ==
PROVIDERS: Family Provider Family Medicine; PCP Family Medicine; Referring Provider Family Medicine; Visit Provider Family Medicine
DX: Z12.31 Encounter for screening mammogram for malignant neoplasm of breast (principal)
CPT/HCPCS: 77063; 77067

== ENCOUNTER → 2022-07-17 14:05 | Outpatient (CLI) | payer OTHER, SELFPAY | PROVIDERS: Family Provider Family Medicine; PCP Family Medicine; Referring Provider Family Medicine; Visit Provider Family Medicine | DX: Z13.820 Encounter for screening for osteoporosis (principal); M85.89 Other specified disorders of bone density and structure, multiple sites; Z78.0 Asymptomatic menopausal state | CPT/HCPCS: 77080 ==

== ENCOUNTER → 2022-11-06 07:59 | Outpatient (CLI) | payer OTHER, SELFPAY ==
--- NOTE | 2022-11-06 | DI.US.S_ITS ---
PROCEDURE: US THYROID INDICATIONS: PALPABLE LUMP LEFT NECK AND TENDERNESS TECHNIQUE: Real-time scanning was performed of the thyroid gland, with image documentation. COMPARISON: [facility], CT, CT ANGIO HEAD AND NECK, 09/29/2021, 7:32. [facility], US, THYROID, 09/18/2010, 9:23. FINDINGS: Right: Thyroid lobe measures 5.3 x 1.5 x 1.4 cm, and is heterogeneous in echotexture. Left: Thyroid lobe measures 5.0 x 1.5 x 1.2 cm, and is heterogeneous in echotexture. Isthmus: 3 mm thick. On Doppler ultrasound, thyroid gland demonstrates increased vascularity. No enlarged lymph nodes in neck. The palpable area and pain in the left neck correlates with calcification at the carotid bifurcation. IMPRESSION: 1. Heterogeneous thyroid gland. Thyroid gland demonstrates increased echotexture suggesting thyroiditis or Graves disease. Please correlate with thyroid function tests. 2. No discrete thyroid nodules. 3. No mass or lymphadenopathy in neck. The palpable abnormality in the left neck correlates with calcification in the area of carotid bifurcation. Dictated by: Hay Waters M.D. on 11/06/2022 at 14:23 Approved by: Hay Waters M.D. on 11/06/2022 at 14:28
--- NOTE | 2022-11-06 | DI.US.S_ITS ---
PROCEDURE: US CAROTID DOPPLER BI INDICATIONS: DIZZINESS TECHNIQUE: Color and pulse Doppler interrogation was performed of both carotid systems, with image documentation and velocity measurements. COMPARISON: [facility], RG, US CAROTID, 09/06/2000, 13:49. [facility], CT, CT ANGIO HEAD AND NECK, 09/29/2021, 7:32. FINDINGS: Stenosis calculations are based on SRU (Society of Radiologists in Ultrasound) criteria. Right side: Brachial blood pressure: 141/85 mm Hg. Common carotid artery peak systolic velocity: 86 cm/sec. Internal carotid artery peak systolic velocity: 151 cm/sec. Internal carotid artery end diastolic velocity: 15 cm/sec. External carotid artery peak systolic velocity: 129 cm/sec. ICA/CCA peak systolic ratio: 1.8. Guan scale imaging description: Echogenic plaques at the bifurcation Percent internal carotid artery stenosis: 50-69%. Vertebral artery: Flow direction is antegrade. Left side: Brachial blood pressure: 137/and mm Hg. Common carotid artery peak systolic velocity: 1 L5 cm/sec. Internal carotid artery peak systolic velocity: 127 cm/sec. Internal carotid artery end diastolic velocity: 64 cm/sec. External carotid artery peak systolic velocity: 105 cm/sec. ICA/CCA peak systolic ratio: 1 point . Guan scale imaging description: Echogenic plaques at the bifurcation Percent internal carotid artery stenosis: 50-69%. Vertebral artery: Flow direction is antegrade. IMPRESSION: 1. 50-69% internal carotid artery stenosis bilaterally, increased since the last exam. 2. Antegrade vertebral artery flow bilaterally. Dictated by: Hay Waters M.D. on 11/06/2022 at 11:51 Approved by: Hay Waters M.D. on 11/06/2022 at 12:12
== END ==
PROVIDERS: Family Provider Family Medicine; PCP Family Medicine; Referring Provider Family Medicine; Visit Provider Family Medicine
DX: R51.9 Headache, unspecified (principal); R42 Dizziness and giddiness; R59.1 Generalized enlarged lymph nodes; I65.23 Occlusion and stenosis of bilateral carotid arteries
CPT/HCPCS: 76536; 93880

== ENCOUNTER → 2022-11-08 07:51 | Outpatient (CLI) | payer OTHER, SELFPAY ==
--- NOTE | 2022-11-08 | DI.ECHO.S_ITS ---
[place] [facility]---------+ [facility] +---------+ : : [address] : [address] : : : : [id number] : : : : Phone: [phone]+ Echocardiogram Report + + :Name: TIFF SALGADO Study Date: 11/08/2022 Height: 70 in : :[facility] ReadingLocation: Weight: 207 lb : : Gender: Female BSA: 2.1 m2 : :: 1960 Age: 62 yrs BP: 133/82 mmHg: :Reason For Study: PALPITATIONS : :Ordering Physician: EFREN, : :FARIBA Performed By: Quiana Kumar : :Referring: FARIBA SCHWARTZ : + + Interpretation Summary 1) Normal left ventricular thickness, size, wall motion, and systolic function (EF 60-65%). 2) Normal right ventricular size and function. 3) No significant valvular abnormalities. 4) A patent foramen ovale is suspected based on color doppler. 5) No prior Echo available for comparison. Procedure: A two-dimensional transthoracic echocardiogram with color flow and Doppler was performed. The study quality was technically adequate. There is no prior echocardiogram noted for this patient. The patient was in sinus rhythm with heart rates between 60-69 bpm during the exam. Left Ventricle: The left ventricle is normal in size and wall thickness. The ejection fraction is estimated to be 60-65%. Left ventricular systolic function appears normal without focal wall motion abnormalities. Diastolic parameters suggest a relaxation abnormality of the left ventricle, consistent with probable normal filling pressures. Right Ventricle: The right ventricle is normal in size and function. Atria: The left atrium is moderately dilated. Right atrial size is normal. A patent foramen ovale is suspected. Mitral Valve: The mitral valve is normal in structure and function. There is trace mitral regurgitation. Aortic Valve: The aortic valve is trileaflet. The aortic valve opens well. There is no aortic valve stenosis. No aortic regurgitation is present. Tricuspid Valve: The tricuspid valve is normal in structure and function. There is mild tricuspid regurgitation. The right ventricular systolic pressure is estimated to be at least 23 mmHg based on an estimated right atrial pressure of 3 mm Hg. Pulmonic Valve: The pulmonic valve leaflets are thin and pliable; valve motion is normal. There is no pulmonic valvular regurgitation. Great Vessels: The aortic root is normal size. The dimensions of the ascending aorta are normal. The IVC is of normal diameter and collapses greater than 50% with a sniff. This suggests a low right atrial pressure of 3 mm Hg. Pericardium/ Pleura There is no pericardial effusion. There is no pleural effusion. MMode/2D Measurements & Calculations LVIDd: 5.7 cm LVOT diam: 2.3 cm LVIDs: 4.2 cm Ao root diam: 3.9 cm FS: 25.7 % asc Aorta Diam: 3.3 cm EPSS: 0.84 cm Ao Arch Diam (Prox Trans): 2.5 cm IVSd: 0.65 cm LVPWd: 0.78 cm LV hood. diameter/BSA (cm/m^2): 2.7 LV sys. diameter/BSA (cm/m^2): 2.0 LA A2 area: 27.0 cm2 RA long axis: 5.4 cm LA A4 area: 20.5 cm2 RA area: 17.5 cm2 LA length (vol): 5.8 cm RA vol: 48.0 ml LA vol: 81.5 ml RA : 22.7 ml/m2 LA vol index: 38.5 ml/m2 IVC diam: 2.0 cm RVD1 (basal): 3.4 cm RVD2 (mid): 2.6 cm TAPSE: 2.3 cm Doppler Measurements & Calculations Ao V2 max: 131.6 cm/sec LVOT Max Calderon: 119.2 cm/sec Ao V2 mean: 87.1 cm/sec LV V1 max P.7 mmHg Ao max P.9 mmHg LV V1 VTI: 25.3 cm Ao mean P.5 mmHg EDWINA(I,D): 3.7 cm2 Ao V2 VTI: 29.8 cm EDWINA(V,D): 3.9 cm2 sev ratio: 0.85 EDWINA indexed to BSA (cm^2/m^2): 1.7 MV E max calderon: 63.0 cm/sec TR max calderon: 222.0 cm/sec MV A max calderon: 60.7 cm/sec TR max P.7 mmHg MV E/A: 1.0 PA V2 max: 107.9 cm/sec Med Peak E' Calderon: 8.0 cm/sec PA V2 mean: 77.4 cm/sec E/E' med: 7.9 PA mean P.6 mmHg Lat Peak E' Calderon: 10.4 cm/sec PA pr(Accel): 8.8 mmHg E/E' lat: 6.1 E/e' average: 7.0 MV dec time: 0.26 sec SV(LVOT): 109.9 ml Reading Physician:12:58 PM
== END ==
PROVIDERS: Family Provider Family Medicine; PCP Family Medicine; Referring Provider Family Medicine; Visit Provider Family Medicine
DX: I07.1 Rheumatic tricuspid insufficiency (principal); R00.2 Palpitations
CPT/HCPCS: 93246; 93306

== ENCOUNTER → 2022-11-08 09:28 | Outpatient (CLI) | payer OTHER, SELFPAY | PROVIDERS: Family Provider Family Medicine; PCP Family Medicine; Referring Provider Family Medicine; Visit Provider Family Medicine | DX: R00.2 Palpitations (principal) | CPT/HCPCS: 93246 ==

== ENCOUNTER 2022-11-10 20:25 | Emergency (ER) | payer OTHER, SELFPAY ==
[2022-11-10 20:36] VITALS: BP 169/85; PULSE 98; RESP 22; TEMP 36.9; O2SAT 99; BMI 29.5
[2022-11-10] MEDS: SODIUM CHLORIDE 0.9% 1,000 ML 1000 ML IV (21:02)
[2022-11-10 21:05] LABS: Add Manual Diff / Slide Review NO; Basophils Absolute Auto 0 /uL (0-100); Basophils Percent Auto 0.8 % (0-2); Eosinophils Absolute Auto 100 /uL (0-450); Eosinophils Percent Auto 2.3 % (2-4); Hematocrit 37.9 % (36-46); Hemoglobin 12.8 g/dL (12.0-16.0); Lymphocytes Absolute Auto 1900 /uL (1100-4500); Lymphocytes Percent Auto 40.5 % (25-40); Mean Corpuscular HGB Conc 33.8 % (30-36); Mean Corpuscular Hemoglobin 31.6 PG (26-34); Mean Corpuscular Volume 93.5 fL (80-100); Monocytes Absolute Auto 400 /uL (0-900); Monocytes Percent Auto 9.5 % (3-14); Neutrophils Absolute Auto 2200 /uL (1500-7000); Neutrophils Percent Auto 46.9 % (50-75); Platelet Count 252 X10^3/uL (150-400); Red Blood Cell Count 4.06 X10^6/uL (4.0-5.2); Red Cell Distribution Width 13.1 % (11.6-14.8); White Blood Cell Count 4.6 X10^3/uL (4.5-11.0)
[2022-11-10 21:13] LABS: Alanine Aminotransferase 23 IU/L (<35); Albumin 4.2 g/dL (3.5-5.0); Albumin Globulin Ratio 1.4 (1.0-2.8); Alkaline Phosphatase 76 U/L (38-126); Aspartate Aminotransferase 26 IU/L (14-36); BUN Creatinine Ratio 24.4 (6-22); Bilirubin Total 0.7 mg/dL (0.2-1.3); Blood Urea Nitrogen 20 mg/dL (7-17); Calcium 8.9 mg/dL (8.4-10.2); Carbon Dioxide 28 mmol/L (22-32); Chloride 104 mmol/L (98-107); Creatine Kinase 120 U/L (30-135); Estimated Glomerular Filt Rate > 60 mL/min (>60); Globulin 2.9 g/dL (1.7-4.1); Glucose 93 mg/dL (80-110); HEMOLYSIS 27 (0-50); Lipase 61 U/L (23-300); Magnesium 2.1 mg/dL (1.6-2.3); Potassium 4.3 mmol/L (3.4-5.1); Sodium 137 mmol/L (137-145); Total Protein 7.1 g/dL (6.3-8.2)
[2022-11-10 21:22] LABS: Prothrombin Time 11.1 SECONDS (10.1-12.7)
[2022-11-10 21:24] LABS: NT-proBNP (BNP-Adult 18+) 48 pg/mL (<125); Troponin I < 0.012 ng/mL (0.01-0.034)
[2022-11-10 21:25] LABS: PTT Partial Thromboplastin Tim 33 SECONDS (26-36)
[2022-11-10 21:28] LABS: CKMB % Relative Index 1.6 % (1.5-5.0); Creatine Kinase MB 1.87 ng/mL (<2.37)
--- NOTE | 2022-11-10 22:05 | ED_ITS ---
HPI - Neuro Symptoms/Deficit General Chief Complaint: Neuro Symptoms/Deficit Stated Complaint: L side face numbing, Stinging sensation on neck Time Seen by Provider: 11/10/22 20:29 Source: patient Mode of arrival: Family Vehicle History of Present Illness HPI Narrative: 62-year-old female nonsmoker with history of hypothyroid and migraines presents with significant other and a chief complaint of a burning left-sided neck pain over the course of the day. She denies any new injury or trauma. She is had no fever or chills. She states that she is been having various other symptoms for some time including palpitations for which her primary care provider had ordered a ZIO patch and recent ultrasound of her neck to help evaluate for this pain that she is been having. The thyroid ultrasound from November 06 demonstrates a heterogeneous thyroid gland with increased echotexture suggesting thyroiditis or Graves disease. Otherwise no mass or lymphadenopathy in the neck. Carotid Doppler demonstrates 50-69% internal carotid artery stenosis bilaterally which is increased since the last exam otherwise unremarkable. On Anticoagulants: No Related Data Home Medications Medication Instructions Recorded Confirmed fexofenadine 180 mg tablet 180 mg PO PRN ##0 08/29/12 05/23/22 Previous Rx's Medication Instructions Recorded ibuprofen 800 mg tablet 800 mg PO Q8H ##42 08/29/12 LEVOTHYROXINE SODIUM (SYNTHROID) 0.05 mg PO QDAY ##90 09/29/12 THYROID (#ARMOUR THYROID) 30 mg PO Q DAY ##30 12/22/12 erythromycin 5 mg/gram (0.5 %) eye 1 applic EYE-LEFT BID chalazion #7 05/04/22 ointment grams benzonatate 100 mg capsule 100 mg PO BID PRN cough #20 caps 05/23/22 Allergies Allergy/AdvReac Type Severity Reaction Status Date / Time Penicillins Allergy Verified 05/23/22 07:34 Review of Systems Review of Systems Narrative: GENERAL: Denies chills, fatigue, malaise, fever, sweats. HEENT: Denies sinus pain, ear pain, sore throat, difficulty swallowing, dizziness. RESPIRATORY: Denies dyspnea, cough, wheezing, hemoptysis, sputum. CARDIOVASCULAR: See HPI GASTROINTESTINAL: Denies nausea, vomiting, abdominal pain, diarrhea, constipation, melena. : Denies dysuria, frequency, incontinence, hematuria, urinary retention. MUSCULOSKELETAL: See HPI SKIN: Denies rash, skin lesions, or other NEUROLOGIC: See HPI PSYCHIATRIC: No concerning psychosocial issues. 12 point review of systems is negative except for those stated above Hematologic/Lymphatic On Anticoagulants: No Patient History Medical History Hypothyroidism Migraine Surgical History No significant past surgical history Social History Smoking Status: Unknown if ever smoked Smoking Status: Unknown if ever smoked alcohol intake frequency: 0-2 drinks per day Substance Use Type: does not use Exam Narrative Exam Narrative: GENERAL: [62] year old patient appears stated age. Well-developed patient, in mild distress. HEAD: Atraumatic. Normocephalic. EYES: Pupils equal round and reactive. Extraocular motions intact. No scleral icterus. No injection or drainage. ENT: Nose without bleeding, purulent drainage. Throat without erythema, tonsillar hypertrophy or exudate. Airway patent. NECK: Trachea midline. Non tender CARDIOVASCULAR: Regular rate and rhythm without murmurs, gallops, or rubs. RESPIRATORY: Clear to auscultation. Breath sounds equal bilaterally. No wheezes, rales, or rhonchi. GASTROINTESTINAL: Abdomen soft, non-tender, nondistended. EXTREMITIES: No edema or joint tenderness. BACK: Nontender without deformity or crepitance. No flank tenderness. NEURO: AOx3. SKIN: No rash or erythema of visible areas NIH Stroke Scale 1a. LOC: Patient is alert and keenly responsive (0) 1b. LOC Questions: Patient answers both LOC questions accurately (0) 1c. LOC Commands: Patient performs both tasks correctly (0) 2. Best Gaze: Normal (0) 3. Visual: No visual loss (0) 4. Facial palsy: Normal symmetrical movements (0) 5. Motor arm: No drift (0) 6. Motor leg: No drift (0) 7. Limb ataxia: Absent (0) 8. Sensory: Normal (0) 9. Best language: No aphasia; normal (0) 10. Dysarthria: Normal (0) 11. Extinction and inattention: No abnormality (0) NIHSS: 0 Initial Vital Signs Initial Vital Signs: Vital Signs Temperature 98.4 F 11/10/22 20:36 Pulse Rate 98 H 11/10/22 20:36 Respiratory Rate 22 11/10/22 20:36 Blood Pressure 169/85 H 11/10/22 20:36 Pulse Oximetry 99 11/10/22 20:36 Oxygen Delivery Method Room Air 11/10/22 20:36 Course Orders Ordered: ED Orders 11/10/22 20:50 Complete Blood Count AUTO DIFF Stat Comprehensive Metabolic Panel Stat Free T4, Direct Thyroxine Stat Lipase Stat Magnesium Stat NT-proBNP (BNP-Adult 18+) Stat PTT Partial Thromboplastin Bj Stat Prothrombin Time INR Stat TSH w/ Reflex to FT4 Stat Troponin & CK Cardiac Panel Stat 11/10/22 22:35 CT angio head and neck Stat 11/11/22 00:08 Free T3, Triiodothyronine Free Stat Thyroid Antibody Panel Stat Discontinued Medications Sodium Chloride (Normal Saline 0.9%) 1,000 mls @ 1,000 mls/hr IV BOLUS ONE Stop: 11/10/22 21:43 Last Infusion: 11/10/22 21:59 Dose: 0 mls/hr Documented By: Admin: 11/10/22 21:02 Dose: 1,000 mls/hr Documented By: SHAKIR Consultations Consultation #1: Discussed with patient PCP (Dr. Wilder). She will follow closely in the clinic later this week, requests that I had some thyroid studies including free T4, free T3 and antibodies. She will pursue outpatient MRI later this week as well. Vital Signs Vital signs: Vital Signs - 8 hr 11/11/22 00:25 Pulse Rate 68 Blood Pressure 147/75 H Pulse Oximetry 100 Oxygen Delivery Method Room Air MDM - Neuro Symptoms/Deficit Lab Data 11/10/22 20:50 11/10/22 20:50 Labs: Lab Results 11/10/22 11/10/22 11/10/22 Range/Units 20:50 20:50 20:50 WBC 4.6 (4.5-11.0) X10^3/uL RBC 4.06 (4.0-5.2) X10^6/uL Hgb 12.8 (12.0-16.0) g/dL Hct 37.9 (36-46) % MCV 93.5 (80-100) fL MCH 31.6 (26-34) PG MCHC 33.8 (30-36) % RDW 13.1 (11.6-14.8) % Plt Count 252 (150-400) X10^3/uL Neut % (Auto) 46.9 L (50-75) % Lymph % (Auto) 40.5 H (25-40) % [place] % (Auto) 9.5 (3-14) % Eos % (Auto) 2.3 (2-4) % Baso % (Auto) 0.8 (0-2) % Neut # (Auto) 2200 (7186-2762) /uL Lymph # (Auto) 1900 (7945-4779) /uL [place] # (Auto) 400 (0-900) /uL Eos # (Auto) 100 (0-450) /uL Baso # (Auto) 0 (0-100) /uL PT 11.1 (10.1-12.7) SECONDS INR 1.0 (0.9-1.3) APTT 33 (26-36) SECONDS Sodium 137 (137-145) mmol/L Potassium 4.3 (3.4-5.1) mmol/L Chloride 104 (98-107) mmol/L Carbon Dioxide 28 (22-32) mmol/L BUN 20 H (7-17) mg/dL Creatinine 0.82 (0.52-1.04) mg/dL Estimated GFR > 60 (>60) mL/min BUN/Creatinine Ratio 24.4 H (6-22) Glucose 93 (80-110) mg/dL Calcium 8.9 (8.4-10.2) mg/dL Magnesium 2.1 (1.6-2.3) mg/dL Total Bilirubin 0.7 (0.2-1.3) mg/dL AST 26 (14-36) IU/L ALT 23 (<35) IU/L Alkaline Phosphatase 76 (38-126) U/L Total Creatine Kinase 120 (30-135) U/L CK-MB (CK-2) 1.87 (<2.37) ng/mL CK-MB (CK-2) Rel Index 1.6 (1.5-5.0) % Troponin I < 0.012 (0.01-0.034) ng/mL NT-Pro-B Natriuret Pep 48 (<125) pg/mL Total Protein 7.1 (6.3-8.2) g/dL Albumin 4.2 (3.5-5.0) g/dL Globulin 2.9 (1.7-4.1) g/dL Albumin/Globulin Ratio 1.4 (1.0-2.8) Lipase 61 (23-300) U/L TSH (0.47-4.68) uIU/mL Free T4 (0.78-2.19) ng/dL Free T3 (2.77-5.27) pg/mL 11/10/22 11/10/22 Range/Units 20:50 20:50 WBC (4.5-11.0) X10^3/uL RBC (4.0-5.2) X10^6/uL Hgb (12.0-16.0) g/dL Hct (36-46) % MCV (80-100) fL MCH (26-34) PG MCHC (30-36) % RDW (11.6-14.8) % Plt Count (150-400) X10^3/uL Neut % (Auto) (50-75) % Lymph % (Auto) (25-40) % [place] % (Auto) (3-14) % Eos % (Auto) (2-4) % Baso % (Auto) (0-2) % Neut # (Auto) (9220-4213) /uL Lymph # (Auto) (2769-0698) /uL [place] # (Auto) (0-900) /uL Eos # (Auto) (0-450) /uL Baso # (Auto) (0-100) /uL PT (10.1-12.7) SECONDS INR (0.9-1.3) APTT (26-36) SECONDS Sodium (137-145) mmol/L Potassium (3.4-5.1) mmol/L Chloride (98-107) mmol/L Carbon Dioxide (22-32) mmol/L BUN (7-17) mg/dL Creatinine (0.52-1.04) mg/dL Estimated GFR (>60) mL/min BUN/Creatinine Ratio (6-22) Glucose (80-110) mg/dL Calcium (8.4-10.2) mg/dL Magnesium (1.6-2.3) mg/dL Total Bilirubin (0.2-1.3) mg/dL AST (14-36) IU/L ALT (<35) IU/L Alkaline Phosphatase (38-126) U/L Total Creatine Kinase (30-135) U/L CK-MB (CK-2) (<2.37) ng/mL CK-MB (CK-2) Rel Index (1.5-5.0) % Troponin I (0.01-0.034) ng/mL NT-Pro-B Natriuret Pep (<125) pg/mL Total Protein (6.3-8.2) g/dL Albumin (3.5-5.0) g/dL Globulin (1.7-4.1) g/dL Albumin/Globulin Ratio (1.0-2.8) Lipase (23-300) U/L TSH 5.94 H (0.47-4.68) uIU/mL Free T4 1.07 Cancelled (0.78-2.19) ng/dL Free T3 2.74 L (2.77-5.27) pg/mL Urine Dip Bedside Urine Glucose Negative Bedside Urine Bilirubin - Negative Bedside Urine Ketone - Negative Urine Specific [place] 1.010 Bedside Urine Occult Blood - Negative Bedside Urine pH 6.0 Bedside Urine Protein - Negative Bedside Urine Urobilinogen - Negative Bedside Urine Nitrite - Negative Bedside Urine Leukocytes - Negative Esterase MDM Narrative Medical decision making narrative: CC: 62-year-old female with burning sensation to her lateral neck Complicating co-morbidities: Age, hypothyroid Data collected from: Patient Medical records reviewed: Prior notes reviewed in our EMR Differential considered, but not limited to: Musculoskeletal versus dissection versus thrombus versus other Exam documented above, pertinent findings include: Very reassuring exam with no neurologic findings noted, no external manifestation of pain or perceived swelling Lab Test results independently reviewed as above. Pertinent findings: Independently reviewed EKG as above Imaging studies independently reviewed: CTA of head and neck unremarkable, no dissection, mass or thrombus Scores Used: NIHSS Consultations: Dr. Wilder, see details above Treatments: saline Re-evaluations: patient doing well Discussion: Patient with known left-sided neck pain has had recent imaging and thus far no obvious etiology. No radicular symptoms, no signs of infection, no upper extremity involvement, no measurable neurologic change. Today's exam is very reassuring, labs and imaging are unremarkable. I have discussed with her primary care provider who will follow closely as an outpatient and pursue MRI. Patient and significant other happy with the results of today's visit and agree with and understand the diagnosis and plan. They have had questions answered to their apparent satisfaction. Return precautions including worsening pain, neurologic symptoms including numbness, tingling and weakness of extremities, face, speech trouble, vision issues or other concerning or bothersome symptoms Disposition: see below, along with detailed discharge instructions that have been reviewed with patient as well as indications for ED re-evaluation and add itional outpatient follow up Discharge Plan Departure Patient Disposition: Home Clinical Impression: Acute neck pain Instructions: DI for Neck Pain Activity Restrictions/Additional Instructions: *You have been diagnosed with [left-sided neck pain. As we discussed your history and physical exam as well as labs and imaging are reassuring. After my discussion with Dr. Wilder I added a few labs that she requested that will be helpful for her moving forward.] *What to do: *Please continue to take your regular medications as directed. [ ] New medication prescriptions sent to your pharmacy: [ ] [ ] New medication written as a paper prescription [ ] No new medications given *Please follow up with your primary care provider in 2-3 days, call for an appointment. Let them know you were seen in the Emergency Department and that we ask that you be seen in follow up. We will electronically transmit a record of today's note if your PCP is in our system *Return to Emergency Department if you should have any new, worsening or concerning symptoms, such as [fever greater than 101 F, shaking chills, worsening pain, persistent vomiting or other bothersome symptoms] Prescriptions: No Action erythromycin 5 mg/gram (0.5 %) ointment 1 applic EYE-LEFT BID Qty: 7 0RF benzonatate 100 mg capsule 100 mg PO BID PRN (Reason: cough) Qty: 20 0RF fexofenadine 180 MG tablet 180 mg PO PRN Qty: 0 ibuprofen 800 MG tablet 800 mg PO Q8H Qty: 42 0RF LEVOTHYROXINE SODIUM (SYNTHROID) 0.05 mg PO QDAY Qty: 90 0RF THYROID (#ARMOUR THYROID) 30 mg PO Q DAY Qty: 30 2RF Referrals: Jenny Wilder MD [Primary Care Provider] - Stand Alone Forms: Patient Portal/API
--- NOTE | 2022-11-10 22:35 | DI.CT.S_ITS ---
PROCEDURE: CT ANGIO HEAD AND NECK INDICATIONS: neck pain, vision change, facial numbness TECHNIQUE: Pre-contrast 4.5 mm thick sections acquired from the foramen magnum to the vertex. After the administration of intravenous contrast, 1 mm thick sections acquired from the aortic arch through the [place]. Post-contrast 4.5 mm thick sections then re-acquired from the foramen magnum to the vertex. 3-dimensional etkitdc-fxydiilxk-maqnqvwqyh (MIP) and/or volume rendering reformats were acquired of the central intracranial vasculature and neck separately. For radiation dose reduction, the following was used: automated exposure control, adjustment of mA and/or kV according to patient size. COMPARISON: [facility], CT, CT ANGIO HEAD AND NECK, 09/29/2021, 7:32. FINDINGS: Image quality: Excellent. BRAIN: CSF spaces: Ventricles are normal in size and shape. Basal cisterns are patent. No extra-axial fluid collections. Brain: No midline shift. No intracranial bleeds or masses. Guan-white matter interface appears intact. Skull and face: Calvarium and facial bones appear intact, without suspicious lesions. Orbits appear normal. Sinuses: Sinuses and mastoids are clear. HEAD CT ANGIOGRAPHY: Anterior circulation: Intracranial internal carotid arteries are normal in size and flow. The flow within the paired anterior cerebral arteries is normal and symmetric. The flow within the middle cerebral arteries is normal and symmetric. The anterior communicating artery is seen. No aneurysms are seen. Posterior circulation: Visualized portions of the vertebral arteries demonstrate normal caliber, and join to form a normal appearing basilar artery. Flow within the posterior cerebral arteries is normal and symmetric. No aneurysms are seen. NECK CT ANGIOGRAPHY: Carotid system: The great vessels demonstrate a conventional anatomy as they arise from the aortic arch. The origins of the common carotid arteries appear patent. The common carotid arteries demonstrate only mildly reduced caliber due to atherosclerotic plaquing and normal courses. The bifurcation regions are both widely patent. The internal carotid arteries demonstrate normal calibers and courses. Posterior circulation: The origins of the vertebral arteries both appear widely patent. The more superior extracranial portions of both vertebral arteries also demonstrate normal courses and calibers. They join to form a normal appearing basilar artery. Soft tissues: Visualized neck soft tissues demonstrate no suspicious abnormalities. Bones: No suspicious bony lesions. Visualized cervical spine appears normally aligned. IMPRESSION: No embolic disease is found, mild atherosclerotic plaquing produces less than 50% stenosis at the origin of each internal carotid artery, slightly greater on the left than the right. Any quantitative measurements of stenosis were performed using NASCET criteria. Dictated by: John Yeung M.D. on 11/10/2022 at 23:37 Approved by: John Yeung M.D. on 11/10/2022 at 23:40
[2022-11-10 22:55] LABS: TSH w/ Reflex to FT4 5.94 uIU/mL (0.47-4.68)
[2022-11-10 23:22] LABS: Free T4, Direct Thyroxine 1.07 ng/dL (0.78-2.19)
[2022-11-11 00:25] VITALS: BP 147/75; PULSE 68; O2SAT 100
[2022-11-11 00:45] LABS: Free T3, Triiodothyronine Free 2.74 pg/mL (2.77-5.27)
[2022-11-13 19:14] LABS: Anti Thyroglobulin Antibody <1.0 IU/mL (0.0-0.9); Thyroid Peroxidase Antibodies 63 IU/mL (0-34)
== END 2022-11-11 00:31 | disposition home or self-care (01) ==
PROVIDERS: Emergency Provider Emergency Medicine; Family Provider Family Medicine; PCP Family Medicine
DX: M54.2 Cervicalgia (principal); R00.2 Palpitations; R20.0 Anesthesia of skin; H53.9 Unspecified visual disturbance
CPT/HCPCS: 36415; 70496; 70498; 80053; 81003; 82550; 82553; 83690; 83735; 83880; 84439; 84443; 84481; 84484; 85025; 85610; 85730; 86376; 86800; 99284; Q9967

== ENCOUNTER → 2022-11-26 15:44 | Outpatient (CLI) | payer OTHER, SELFPAY ==
--- NOTE | 2022-11-26 15:45 | DI.MRI.S_ITS ---
4PROCEDURE: MR STROKE Pre- and post-contrast brain MRI, non-contrast brain MR angiogram, pre- and postcontrast neck MR angiogram INDICATIONS: Dizziness and giddiness TECHNIQUE: Brain: Noncontrast axial T1 spin echo, axial T2 fast spin echo, sagittal and axial FLAIR, coronal T2 fast spin echo, axial gradient echo, axial diffusion and ADC through the brain. After the administration of contrast, axial 3D VIBE of the cranial vasculature and brain. Brain MRA: Non-contrast 3-D time of flight MR angiogram, with multiple cohtzou-sfhxnesyy-zmpfwdcgbn (MIP) reformats performed. Neck MRA: Axial and sagittal TruFISP through the neck. Coronal dynamic MR angiogram during administration of contrast in the arterial and venous phases, with 3-dimenstional kvcuywe-mfsinbhyq-dodezvpuoz (MIP) reformats constructed from subtraction images. COMPARISON: [facility], MR, MR STROKE, 10/21/2021, 11:13. FINDINGS: Image quality: Excellent. BRAIN: CSF spaces: Ventricles are normal in size and shape. Basal cisterns are patent. No extra-axial fluid collections. Brain: No intracranial bleeds or mass effects. Guan-white matter interface is normal. Diffusion weighted images show no acute ischemic insults. Brainstem appears normal. Normal intravascular flow voids are present. No abnormal intracranial enhancement. Skull and face: Calvarial marrow signal is normal. Orbits appear normal. Sinuses: Sinuses and mastoids are clear. BRAIN MR ANGIOGRAM: Anterior circulation: Intracranial internal carotid arteries are normal in size and enhancement. The flow within the paired anterior cerebral arteries is normal and symmetric. The flow within the middle cerebral arteries is normal and symmetric. The anterior communicating artery is seen. No stenoses, occlusions, or aneurysms. Posterior circulation: The visualized portions of the vertebral arteries demonstrate normal caliber, and join to form a normal appearing basilar artery. The flow within the posterior cerebral arteries is normal and symmetric. No stenoses, occlusions, or aneurysms. NECK MR ANGIOGRAM: Carotids: Great vessels demonstrate a conventional anatomy as they arise from the aortic arch. The origins of the common carotid arteries appear patent. The calibers and courses of both common carotid arteries are normal. The bifurcation regions appear normal bilaterally. The internal carotid arteries demonstrate normal course and caliber. Posterior circulation: The origins of the vertebral arteries appear patent. More superior portions of both vertebral arteries are partially obscured by venous overlap but are grossly unremarkable as visualized. Miscellaneous: Subclavian arteries appear patent. Pre-contrast images through the neck show no soft tissue abnormalities. IMPRESSION: BRAIN MRI: 1. Negative evaluation of the brain. 2. No acute process. No recent infarct. BRAIN MR ANGIOGRAM: Negative cerebral MR angiography. NECK MR ANGIOGRAM: 1. No internal carotid artery stenosis bilaterally. 2. Suboptimal visualization of the vertebral arteries which are within normal limits as visualized. Dictated by: Basim Silvestre M.D. on 11/26/2022 at 15:57 Transcribed by: ARRON on 11/26/2022 at 16:00 Approved by: Basim Silvestre M.D. on 11/26/2022 at 16:52
== END ==
PROVIDERS: Family Provider Family Medicine; PCP Family Medicine; Referring Provider Family Medicine; Visit Provider Family Medicine
DX: I73.9 Peripheral vascular disease, unspecified (principal); R42 Dizziness and giddiness; R00.2 Palpitations; R20.2 Paresthesia of skin
CPT/HCPCS: 70548; 70553

== ENCOUNTER → 2022-12-17 07:26 | Outpatient (CLI) | payer OTHER, SELFPAY ==
--- NOTE | 2022-12-17 | DI.NM.S_ITS ---
PROCEDURE: NM UPTAKE AND SCAN RADIOPHARMACEUTICAL: 401 ?Ci I-123 sodium iodide by mouth. INDICATIONS: Dizziness and giddiness TECHNIQUE: I-123 sodium iodide was administered orally. Anterior neck images were obtained, and iodine uptake by the thyroid gland calculated using international trade specialist's software. COMPARISON: [facility], CT, CT ANGIO HEAD AND NECK, 11/10/2022, 22:51. FINDINGS: Morphology: The thyroid gland has normal morphology and uniform activity. No 'cold' or 'hot' thyroid nodules are identified. Uptake: 6 hour thyroid uptake is 8.9%; normal ranges are from 6-18%. 24 hour thyroid uptake is 18.4%; normal ranges are from 10-30%. IMPRESSION: Thyroid uptake study within normal limits. Dictated by: Subhash Roman M.D. on 12/18/2022 at 14:08 Approved by: Subhash Roman M.D. on 12/18/2022 at 14:10
== END ==
PROVIDERS: Family Provider Family Medicine; PCP Family Medicine; Referring Provider Family Medicine; Visit Provider Family Medicine
DX: R42 Dizziness and giddiness
CPT/HCPCS: 78014; A9516

== ENCOUNTER → 2024-10-22 11:48 | Outpatient (CLI) | payer OTHER, MEDICARE, SELFPAY ==
--- NOTE | 2024-10-22 11:51 | DI.US.S_ITS ---
PROCEDURE: US CAROTID DOPPLER BI INDICATIONS: PVD TECHNIQUE: Color and pulse Doppler interrogation was performed of both carotid systems, with image documentation and velocity measurements. COMPARISON: [facility], , US CAROTID DOPPLER BI, 11/06/2022, 8:07. (Additional prior imaging is not available for review from the archive at the time of this dictation.) FINDINGS: Stenosis calculations are based on SRU (Society [employer] in Ultras[employer]) criteria. The flow velocities and the arterial waveforms are normal within both carotid arterial systems. Atherosclerotic plaque is seen on both sides. The estimated degree of internal carotid artery stenosis is less than 50%. Antegrade flow is confirmed within both vertebral arteries. IMPRESSION: No hemodynamically significant stenosis is seen. The flow velocity of the left proximal internal carotid artery is now within normal limits. Atherosclerotic plaque is noted bilaterally. Dictated by: Subhash Roman M.D. on 10/22/2024 at 12:17 Approved by: Subhash Roman M.D. on 10/22/2024 at 12:18
== END ==
PROVIDERS: Family Provider Family Medicine; PCP Family Medicine; Referring Provider Family Medicine; Visit Provider Family Medicine
DX: R42 Dizziness and giddiness (principal); R20.2 Paresthesia of skin; I73.9 Peripheral vascular disease, unspecified
CPT/HCPCS: 93880